=== PATIENT | female | born 1985 | race Caucasian/White ===

== ENCOUNTER → 2017-06-03 | Outpatient (CLI) | payer OTHER ==
--- NOTE | 2017-06-03 13:48 | RADIOLOGY REPORT (SQ) ---
EXAM DESCRIPTION: MRI LUMBAR SPINE WITHOUT COMPLETED DATE/TIME: 06/03/2017 12:43 pm REASON FOR STUDY: (M54.40) LOW BACK PAIN WITH SCIATICA M54.40 LUMBAGO WITH SCIATICA, UNSPECIFIED SI DE COMPARISON: None. TECHNIQUE: Sagittal and Axial imaging includes T1, T2, STIR and gradient echo sequences. Coronal T2/ HASTE imaging. LIMITATIONS: None. FINDINGS: VISUALIZED UPPER ABDOMEN: Limited evaluation. No acute or suspicious findings suggested. SEGMENTATION: No transitional anatomy. The lowest well-developed disc space is labeled L5-S1. ALIGNMENT: Anatomic. VERTEBRAE: Intact. BONE MARROW: Normal. No marrow replacement or reactive changes. DISC SIGNAL: Normal. No significant abnormal signal or loss of height. POSTERIOR ELEMENTS: Intact. HARDWARE: None in the spine. CORD AND CONUS: Normal in size and signal intensity. Conus at the appropriate level. SOFT TISSUES: No aortic aneurysm seen. No bulky retroperitoneal adenopathy or mass. No paraspinal mas s or fluid. L1-L2: No significant spinal stenosis or exit foraminal stenosis. L2-L3: No significant spinal stenosis or exit foraminal stenosis. L3-L4: Disc bulge. Mild narrowing of the spinal canal. L4-L5: No significant spinal stenosis or exit foraminal stenosis. L5-S1: Mild facet arthropathy. No significant spinal stenosis or exit foraminal stenosis. LOWER THORACIC: Incompletely imaged. No stenosis seen. SACRUM: Visualized upper sacrum intact. OTHER: No other significant findings. IMPRESSION: Mild degenerative changes. TECHNICAL DOCUMENTATION: JOB ID: [id number] [employer]- All Rights Reserved
== END ==
LOC: RAD 11:37
PROVIDERS: ATTEND Family Medicine
DX: M54.40 Lumbago with sciatica, unspecified side (principal)
CPT/HCPCS: 72148

== ENCOUNTER → 2017-10-25 | Outpatient (CLI) | payer MEDICAID, OTHER ==
--- NOTE | 2017-10-25 10:29 | RADIOLOGY REPORT (SQ) ---
EXAM DESCRIPTION: CT ABD/PELVIS NO ORAL OR IV COMPLETED DATE/TIME: 10/25/2017 9:50 am REASON FOR STUDY: LUQ ABDOMINAL PAIN R10.12 LEFT UPPER QUADRANT PAIN COMPARISON: None. TECHNIQUE: CT scan of the abdomen and pelvis performed without intravenous or oral contrast. Images reviewed with lung, soft tissue, and bone windows. Reconstructed coronal and sagittal MPR images revi ewed. All images stored on PACS. All CT scanners at this facility use dose modulation, iterative reconstruction, and/or weight based d osing when appropriate to reduce radiation dose to as low as reasonably achievable (ALARA). [facility]: Dose Right [facility]: CareDose [facility]: Dose Right [facility]: Teradose 4D [facility]: Smart tradeNOW RADIATION DOSE: CT Rad equipment meets quality standard of care and radiation dose reduction techniq ues were employed. CTDIvol: 2.4 mGy. DLP: 119 mGy-cm.mGy. LIMITATIONS: Lack of oral and intravenous contrast and paucity of intra-abdominal fat FINDINGS: LOWER CHEST: No significant findings. No nodules or infiltrates. NON-CONTRASTED LIVER, SPLEEN, ADRENALS: Evaluation limited by lack of IV contrast. No identified sign ificant masses. PANCREAS: No obvious masses or inflammatory changes. Evaluation limited. GALLBLADDER: No identified stones by CT criteria. No inflammatory changes to suggest cholecystitis. RIGHT KIDNEY AND URETER: No suspicious masses. Assessment limited by lack of IV contrast. No signif icant calcifications. No hydronephrosis or hydroureter. LEFT KIDNEY AND URETER: No suspicious masses. Assessment limited by lack of IV contrast. No signifi cant calcifications. No hydronephrosis or hydroureter. AORTA AND RETROPERITONEUM: No aneurysm. No retroperitoneal masses or adenopathy. BOWEL AND PERITONEAL CAVITY: No obvious masses or inflammatory changes. No free fluid. APPENDIX: Not identified. PELVIS, BLADDER, AND ABDOMINAL WALL:No abnormal masses. No free fluid. Bladder normal. BONES: No significant findings. OTHER: No other significant finding. IMPRESSION: Limited study as described above. No acute findings are seen in the abdomen or pelvis t o explain the patient's pain. COMMENT: Quality ID # [id number]: Final reports with documentation of one or more dose reduction techniques (e.g., Automated exposure control, adjustment of the mA and/or kV according to patient size, use of iterative reconstruction technique) TECHNICAL DOCUMENTATION: JOB ID: [id number] [employer]- All Rights Reserved Reading location - IP/workstation name: [email or web address]
== END ==
LOC: RAD 09:11
PROVIDERS: ATTEND Family Medicine
DX: R10.12 Left upper quadrant pain (principal)
CPT/HCPCS: 74176

== ENCOUNTER 2020-08-12 09:32 | Inpatient (IN) | payer MEDICAID ==
[2020-08-12] MEDS ORDERED: CITRIC ACID/SODIUM CITRATE ORAL SOLN 15 ML UDCUP ONE (10:08)
[2020-08-12] MEDS ORDERED: CLINDAMYCIN 900 MG/D5W RTU 900 MG/50 ML RTUPB IV ONE (10:08)
[2020-08-12] MEDS ORDERED: FAMOTIDINE INJ/PF 20 MG/2 ML SDV IV ONE (10:13)
[2020-08-12] MEDS ORDERED: RINGERS SOLUTION,LACTATED 1,000 ML IV PRN ×2 (10:13→12:09)
[2020-08-12 10:15] LABS: APPEARANCE,URINE SLIGHTLY-CLOUDY; BILIRUBIN,URINE NEGATIVE (NEGATIVE); COLOR,URINE YELLOW; GLUCOSE, URINE NEGATIVE (NEGATIVE); KETONES,URINE TRACE mg/dL (NEGATIVE); LEUKOCYTE ESTERASE,URINE LARGE (NEGATIVE); NITRITE,URINE NEGATIVE (NEGATIVE); PROTEIN,URINE 100 mg/dL (NEGATIVE); UROBILINOGEN,URINE NEGATIVE mg/dL (<2.0)
[2020-08-12] MEDS ORDERED: AZITHROMYCIN INJ 500 MG VIAL IV ONE ×2 (10:17→10:20)
[2020-08-12] MEDS ORDERED: OXYTOCIN 10 UNIT/ML VIAL ONE (10:19)
[2020-08-12] MEDS ORDERED: PHENYLEPHRINE HCL INJ/PF 10 MG/1 ML SDV ONE (10:19)
[2020-08-12] MEDS ORDERED: EPHEDRINE SULFATE INJ 50 MG/1 ML AMPULE ONE (10:19)
[2020-08-12] MEDS ORDERED: MIDAZOLAM 2 MG/2 ML INJ ONE (10:19)
[2020-08-12] MEDS ORDERED: FENTANYL CITRATE INJ/PF 100 MCG/2 ML AMPUL ONE (10:19)
[2020-08-12] MEDS ORDERED: KETOROLAC TROMETHAMINE INJ/PF 30 MG/1 ML SDV ONE (10:19)
[2020-08-12] MEDS ORDERED: OXYTOCIN/0.9 % SODIUM CHLORIDE 30 UNIT/500 ML RTUINJ ONE (10:19)
[2020-08-12] MEDS ORDERED: ACETAMINOPHEN 1,000 MG/100 ML RTUPB IV ONE (10:19)
[2020-08-12] MEDS ORDERED: ONDANSETRON HCL INJ/PF 4 MG/2 ML SDV ONE (10:19)
--- NOTE | 2020-08-12 10:28 | Admission Physical ---
Datetime Report Generated by CPN: 08/12/2020 10:28 CURRENT ADMISSION Hx Assessment: The History has been Reviewed and is Current Chief Complaint: Uterine Contractions; Maternal Discomfort Chief Complaint Other: Lost mucus plug last night. This morning painful contractions and bloody mucus when voiding. Good movement. No Loss of fluid Admit Impression : Term, Intrauterine ; Active Labor; Intact Membranes; Repeat Section Admit Plan: Admit to Unit; Initiate Section Protocol ALLERGIES Medication Allergies: ciprofloxacin HCl/Hives (08/12/2020); Penicillins/Swelling of Thr (08/12/2020) PHYSICAL EXAM General: Normal HEENT: Normal Neurologic: Normal Thyroid: Normal Heart: Normal Lungs: Normal Breast: Normal Back: Normal Abdomen: Normal Genitourinary Exam: Normal Extremities: Normal DTRs: Normal Pelvic Type: Adequate Vital Signs: Reviewed; Within Normal Limits VAGINAL EXAM Dilatation: 6 Effacement: 90 Station: -1 Contraction Comments: regularly q 3-4 minutes MEMBRANES Membranes: Intact FETUS A Monitoring: External US FHR- Baseline: 155 Variability: Moderate 6-25bpm Accelerations: 15X15 Decelerations: None FHR Category: Category I Presentation: Breech Admit Comment: at 38.2 wks EGA in active labor with breech presentation and undesired fertility -Admit to LDR -NPO and IVFs: LR at 150 cc/hr after 1 liter bolus -Abdomial prep -CEFM and toco -Allergy PCN anaphylaxis: Clindamycin 900mg IV prior to OR along with azithromycin 500mg IV prior to OR -Unwanted fertilty: G4 now. Desires BTL -Plan for PCS with BTL now INFORMED CONSENT Signature: with User ID: Tari : with User ID: Tari
[2020-08-12 10:44] LABS: ABSOLUTE BASOPHILS # (AUTO) 0.1 10^3/uL (0.0-0.2); ABSOLUTE EOSINOPHILS # (AUTO) 0.1 10^3/uL (0.0-0.6); ABSOLUTE MONOCYTES (AUTO) 0.8 10^3/uL (0.1-1.4); ABSOLUTE NEUT (AUTO) 10.2 10^3/uL (1.7-8.2); BASOPHILS % (AUTO) 0.8 % (0-2); EOSINOPHILS % (AUTO) 0.4 % (0-6); HEMATOCRIT 36.1 % (36.0-47.0); HEMOGLOBIN 12.9 g/dL (12.0-15.5); LYMPHOCYTES % (AUTO) 15.2 % (13-45); MEAN CORPUSCULAR HEMOGLOBIN 33.8 pg (27.0-33.4); MEAN CORPUSCULAR HGB CONC 35.8 g/dL (32.0-36.0); MEAN CORPUSCULAR VOLUME 95 fl (80-97); PLATELET COUNT 212 10^3/uL (150-450); RED BLOOD COUNT 3.82 10^6/uL (3.72-5.28); RED CELL DISTRIBUTION WIDTH 13.2 % (11.5-14.0); SEGMENTED NEUTROPHILS % (AUTO) 77.6 % (42-78); TOTAL CELLS COUNTED % (AUTO) 100 %; WHITE BLOOD COUNT 13.2 10^3/uL (4.0-10.5)
[2020-08-12 10:44] LABS: URINE AMPHETAMINES SCREEN NEGATIVE; URINE BARBITURATES SCREEN NEGATIVE; URINE BENZODIAZEPINES SCREEN NEGATIVE; URINE METHADONE SCREEN NEGATIVE; URINE PHENCYCLIDINE SCREEN NEGATIVE
[2020-08-12 10:51] LABS: URINE COCAINE SCREEN UNCONFIRMED POSITIVE; URINE MARIJUANA (THC) SCREEN UNCONFIRMED POSITIVE
[2020-08-12] MEDS ORDERED: ACETAMINOPHEN 325 MG TABLET PO PRN (12:09)
[2020-08-12] MEDS ORDERED: MEASLES,MUMPS&RUBELLA VACC/PF 0.5 ML VIAL SUBCUT PRN (12:09)
[2020-08-12] MEDS ORDERED: OXYTOCIN/0.9 % SODIUM CHLORIDE 30 UNIT/500 ML RTUINJ IV PRN (12:09)
[2020-08-12] MEDS ORDERED: OXYCODONE-ACETAMINOPHEN 5-325 MG TABLET PO PRN (12:09)
[2020-08-12] MEDS ORDERED: PROMETHAZINE HCL INJ 25 MG/1 ML VIAL IV PRN (12:09)
[2020-08-12] MEDS ORDERED: DIPH/PERTUSS(ACELL)/TETANUS VAC/PF 0.5 ML SYR (>=10YO) IM PRN (12:09)
--- NOTE | 2020-08-12 13:57 | Birth Certificate Data ---
Cert Data Datetime Report Generated by CPN: 08/12/2020 13:56 CERTIFICATE DATA Delivery Provider: Hina Mullen MD (08/12/2020 09:29:Keerthi Spear RN) 47a. Care: No (08/12/2020 09:29:Elizabeth Hernandez RN) 47b. Date of First Visit: 04/05/2020 00:00 (08/12/2020 09:29:Elizabeth Hernandez RN) 47c. Date of Last Visit: 08/05/2020 00:00 (08/12/2020 09:29:Elizabeth Hernandez RN) 47d. Number of Visits: 7 (08/12/2020 09:29:Elizabeth Hernandez RN) 48a. Number of Prev Live Births: 3 (08/12/2020 09:29:Elizabeth Hernandez RN) 48b. Now Livin (08/12/2020 09:29:Elizabeth Hernandez RN) 48c. Live Births Now : 0 (08/12/2020 09:29:QS system process) 48d. Date of Last Live : 09/13/2015 00:00 (08/12/2020 09:29:Elizabeth Hernandez RN) 48e. Losses: 0 (08/12/2020 09:29:Elizabeth Hernandez RN) RISK FACTORS IN THIS 49a. Diabetes: No (08/12/2020 09:29:Elizabeth Hernandez RN) 49b. Hypertension: No (08/12/2020 09:29:Elizabeth Hernandez RN) 49c. Previous Births: 0 (08/12/2020 09:29:Elizabeth Hernandez RN) 49d. Stillborns: No (08/12/2020 09:29:Elizabeth Hernandez RN) 49d. IUGR: No (08/12/2020 09:29:Elizabeth Hernandez RN) 49e. Infertility Treatment: No (08/12/2020 09:29:Elizabeth Hernandez RN) 49f. Previous Cesareans: 0 (08/12/2020 09:29:Elizabeth Hernandez RN) Mother's Height 50b. Height Inches: 65 (08/12/2020 09:43:QS system process) Mother's Weight 51a. Pre- Weight (lbs): 140 (08/12/2020 09:29:Elizabeth Hernandez RN) 51b. Weight at Delivery (lbs): 167 (08/12/2020 10:14:QS system process) 52. Dt Last Normal Menses Began: 11/16/2019 00:00 (08/12/2020 09:29:Elizabeth Hernandez RN) Infections Present/Treated 53a. Gonorrhea: No (08/12/2020 09:29:Elizabeth Hernandez RN) Results this Hospital Visit : Negative (08/12/2020 09:29:Elizabeth Hernandez RN) 53b. Syphilis: No (08/12/2020 09:29:Elizabeth Hernandez RN) 53c. Chlamydia: No (08/12/2020 09:29:Elizabeth Hernandez RN) Results this Hospital Visit: Negative (08/12/2020 09:29:Elizabeth Hernandez RN) 53d. Hepatitis B: No (08/12/2020 09:29:Elizabeth Hernandez RN) Results this Hospital Visit: Negative (08/12/2020 09:29:Elizabeth Hernandez RN) 53e. Hepatitis C: Negative (08/12/2020 09:29:Elizabeth Hernandez RN) 53h. Mother Tested for HBsAG: Yes (08/12/2020 09:29:Elizabeth Hernandez RN) 53i. Date Tested: 04/17/2020 00:00 (08/12/2020 09:29:Elizabeth Hernandez RN) 53j. Test Result: Negative (08/12/2020 09:29:Elizabeth Hernandez RN) Obstetric Procedures 54a, b, c. Obstetric Procedures: Ultrasound; NST (08/12/2020 09:29:Elizabeth Hernandez RN) Cigarette Smoking Cigarette Smoking: Current Everyday Smoker. [id number] (08/12/2020 09:29:Elizabeth Hernandez RN) 55a. 3 Months Before Preg - Ci (08/12/2020 09:29:Elizabeth Hernandez RN) 55a. Packs: 1 (08/12/2020 09:29:Elizabeth Hernandez RN) 55b. 1st Trimester of Preg- Ci (08/12/2020 09:29:Elizabeth Hernandez RN) 55b. Packs: 0 (08/12/2020 09:29:Elizabeth Hernandez RN) 55c. 2nd Trimester of Preg- Ci (08/12/2020 09:29:Elizabeth Hernandez RN) 55c. Packs: 0 (08/12/2020 09:29:Elizabeth Hernandez RN) 55d. 3rd Trimester of Preg- Ci (08/12/2020 09:29:Elizabeth Hernandez RN) 55d. Packs: 0 (08/12/2020 09:29:Elizabeth Hernandez RN) Onset of Labor 56a. PROM >12 Hrs: 0.02 (08/12/2020 09:29:QS system process) 56b. Precipitous Labor <3 Hrs: 3 (08/12/2020 09:29:QS system process) 56c. Prolonged Labor > 20 Hrs: 3 (08/12/2020 09:29:QS system process) 57a. Induction of Labor: N/A (08/12/2020 09:29:Keerthi Spear RN) 57c. Non-Vertex Presentation A: N/A (08/12/2020 09:29:Keerthi Spear RN) 57d. Steroids - Lung Mat: None (08/12/2020 09:29:Keerthi Spear RN) 57d. Steroids - Lung Mat: Not Applicable (08/12/2020 09:29:Keerthi Spear RN) 57f. Mat [place] or Temp >100.4: 98.0 (08/12/2020 09:29:Elizabeth Hernandez RN) 57g. Moderate/Heavy Meconium: Light Meconium (08/12/2020 09:29:Elizabeth Hernandez RN) 57h. Intolerance of Labor: Breech Presentation (08/12/2020 09:29:Keerthi Spear RN) 57i. Epidural/Spinal Anesthesia: None (08/12/2020 09:29:Keerthi Spear RN) Method of Delivery 58a. Forceps - Unsuccessful A: N/A (08/12/2020 09:29:Keerthi Spear RN) 58b. Vacuum - Unsuccessful A: N/A (08/12/2020 09:29:Keerthi Spear RN) 58c. Presentation at 58c. Presentation at - A : N/A (08/12/2020 09:29:Keerthi Spear RN) 58c. Presentation at - A : Brandyn (08/12/2020 09:29:Elizabeth Hernandez RN) 58c. Presentation at - A : Breech (Annotations: Data stored by [employer] on behalf of user) (08/12/2020 09:29:Keerthi Spear RN) Final Route and Method of Del 58d. Baby A Route/Delivery: (08/12/2020 09:29:Glenna Palomares RN) 58e. Trial of Labor Attempted: No (08/12/2020 09:29:Keerthi Spear RN) 58e. Trial of Labor Attempted A: N/A (08/12/2020 09:29:Keerthi Spear RN) 58e. Trial of Labor Attempted B: N/A (08/12/2020 09:29:Keerthi Spear RN) Maternal Morbidity 59b. 3rd or 4th Degree Lacs: None (08/12/2020 09:29:Keerthi Spear RN) 59b. 3rd or 4th Degree Lacs: N/A (08/12/2020 09:29:Keerthi Spear RN) Birthweight Baby A: 2565 (08/12/2020 09:29:Glenna Palomares RN) 60a. Pounds : 5 (08/12/2020 09:29:QS system process) 60b. Ounces: 10 (08/12/2020 09:29:QS system process) 61. GA at Delivery Baby A: 38.2 (08/12/2020 09:29:Keerthi Spear RN) : Early Term- 37- 38.6 Weeks (08/12/2020 09:29:QS system process) 62a. 5 Minute Baby A: 9 (08/12/2020 09:29:QS system process)
--- NOTE | 2020-08-12 13:57 | Delivery Summary ---
Del Sum A-C Datetime Report Generated by CPN: 08/12/2020 13:56 DELIVERY PERSONNEL DELIVERY PERSONNEL: [id number] Delivery Doctor:: Hina Mullen MD VARIETY LATHE OPERATOR:: Robin Valencia VARIETY LATHE OPERATOR Fashion Photographer:: lEizabeth Hernandez RN Neonatal Nurse Practitioner:: HYUN Henry Nursery Nurse:: Elizabeth Hernandez RN Environmental Health And Safety Intern/QM CONSULTANT: Chica Rojo CST Environmental Health And Safety Intern/QM CONSULTANT: Honey Puri, ST MATERNAL INFORMATION Delivery Anesthesia: Spinal Medications After Delivery: Pitocin 30 Units in 500ml NS/D5W; Pitocin Drip 20 Units/1000ml NSS Delivery QBL: 430 Maternal Complications: None LABOR SUMMARY EDC: 08/22/2020 00:00 No. Babies in Womb: 1 Attempted: No Labor Anesthesia: None LABOR INFORMATION Reason for Induction: Not Applicable Onset of Labor: 08/12/2020 08:00 Oxytocin: N/A Group B Beta Strep: Negative Antibiotics # of Doses: n/a Name of Antibiotic Given: n/a Steroids Given: None Reason Steroids Not Administered: Not Applicable MEMBRANES Membranes Rupture Method: Artificial Rupture of Membranes: 08/12/2020 11:13 Length of Rupture (hr): 0.02 Amniotic Fluid Color: Light Meconium Amniotic Fluid Amount: Small Amniotic Fluid Odor: Normal STAGES OF LABOR Stage 3 hr: 0 Stage 3 min: 1 Total Time in Labor hr: 3 Total Time in Labor min: 15 VAGINAL DELIVERY Episiotomy: None Laceration #1: None Laceration Extension #1: N/A Laceration Repair: Not Applicable Sponge Count Correct: N/A Sharps Count Correct: N/A CSECTION DELIVERY Primary Indication: Breech Presentation CSection Urgency: Non-Scheduled CSection Incidence: Primary Labor: Labor Elective: Nonelective CSection Incision: Lower Uterine Transverse Other Sterilization Procedure: Modified Brown BABY A INFORMATION Delivery Date/Time: 08/12/2020 11:14 Method of Delivery: Nurse Controlled Delivery: No Born in Route : No : N/A Forceps: N/A Vacuum Extraction: N/A Shoulder Dystocia : No PRESENTATION/POSITION BABY A Presentation: Breech (Annotations: Data stored by [facility] on behalf of user) Cephalic Presentation: N/A Breech Presentation: Brandyn PLACENTA INFORMATION BABY A Placenta Delivery Time : 08/12/2020 11:15 Placenta Method of Delivery: Manual Removal Placenta Status: Delivered SCORES BABY A Heart Rate 1 min: >100 bpm Resp Effort 1 min: Good Cry Reflex Irritability 1 min: Cough or Sneeze or Pulls Away Muscle Tone 1 min: Some Flexion of Extremities Color 1 min: Blue/Pale SCORE 1 MIN: 7 Heart Rate 5 min: >100 bpm Resp Effort 5 min: Good Cry Reflex Irritability 5 min: Cough or Sneeze or Pulls Away Muscle Tone 5 min: Active Motion Color 5 min: Body Deepstep, Extremities Blue SCORE 5 MIN: 9 INFORMATION BABY A Gestational Age at Delivery: 38.2 Gestational Status: Early Term- 37- 38.6 Weeks Infant Outcome : Liveborn Condition : Stable Infant Sex: Female IDENTIFICATION BABY A Verification Date/Time: 08/12/2020 11:22 ID Band Number: [id number] Mother's Name Verified: Yes RN Verifying Infant: Maliha Hernandez RN Additional Verifying Personnel: Cornelio Palomares RN WEIGHT/LENGTH BABY A Birthweight (gm): 2565 Weight (lb): 5 Infant Weight (oz): 10 Length (in): 19.50 Length (cm): 49.53 CORD INFORMATION BABY A No. Cord Vessels: 3 Nuchal Cord : N/A Cord Blood Taken: No-Annotate Suction: Mouth; Nose ASSESSMENT BABY A Skin to Skin: No BABY B INFORMATION : N/A
[2020-08-12] MEDS ORDERED: DIPHENHYDRAMINE HCL 50 MG/ML VIAL ONE (14:19)
[2020-08-12] MEDS ORDERED: DIPHENHYDRAMINE HCL 50 MG/ML VIAL IV ONE (14:23)
--- NOTE | 2020-08-12 14:42 | Operative Report ---
Operative Report DATE OF SURGERY: 08/12/20 PREOPERATIVE DIAGNOSIS: Active labor. Breech. Unwanted fertitlity. Maternal substance abuse in : third trimester. Intrauterine at 38.2 wks POSTOPERATIVE DIAGNOSIS: Same as above. Mecondium stainted amniotic fluid OPERATION: Primary cesareant section. Bilateral tubal ligation SURGEON: JAVIER SULLIVAN ANESTHESIA: Spinal TISSUE REMOVED OR ALTERED: Placenta and bilateral fallopian tube segments COMPLICATIONS: None ESTIMATED BLOOD LOSS: 700cc INTRAOPERATIVE FINDINGS: Normal appearing uterus, bilateral fallopian tubes and ovaries. Meconium stained fluid . Viable female infant. PROCEDURE: IV fluids: per anesthesia record Urinary output: 300 cc clear yellow urine Position: To recovery room in stable condition Description of procedure: The patient was taken to the operating room and spinal anesthesia was administered and found to be adequate. She was then placed on the OR table in the supine position with a slight leftward tilt. Patient was prepped and draped in usual sterile fashion. Azithromycin 500mg and Clindamycin 900mg were given IV prior to the procedure for infection prophylaxis. Timeout was taken. A Pfannenstiel skin incision was then made approximately 3 cm above the pubic symphysis and carried down to level the rectus fascia. The rectus fascia was then nicked in the midline with a scalpel and the fascial incision was extended laterally with use of curved Mart scissors. The rectus fascia was then grasped with 2 Kocker clamps elevated and the underlying rectus muscle was dissected off both bluntly and sharply. Any bleeding controlled with cautery. The rectus muscles were then split in the midline and the peritoneum was entered. The peritoneal incision was then extended by manually stretching the peritoneum. The bladder blade was positioned. Bladder flap created and bladder blade replaced. The bladder was noted to be out of harm's way. A scalpel was then used in the lower uterine for the hysterotomy, slowly until amniotomy was obtained a large amount of meconium fluid was noted. The uterine incision was then manually stretched. The infant was noted to be in breech position . The buttocks were delivered with minmal difficulty. Then the legs each delivered followed by the torso to level of the scapula. Each arm was delivered and then the head delivered easily. The cord was cut clamped and the was handed off to the nurse awaiting. Infant was crying prior to hand off. The placenta was manually delivered. Using a lap gauze the uterus was cleared of all clots and debris. The uterus was then exteriorized and a bladder blade was repositioned. The uterine incision was then closed with 0 Chromic suture in a running locked fashion. A second layer of the same suture was used in a running locked imbricated fashion. The uterine incision was inspected and noted to be hemostatic. Retractor was removed. The posterior aspect of the uterus was then inspected and anatomy was seen as above. The right fallopian tube was identified and traced to the fimbriated end. A vascular free area was identified in the mesosalpinx approximately 2 cm from the uterine cornu. Using the bovie a window was created. [place] clamps elevated holding tube segement and 2-0 plain gut was used to tie off tube on either side of otilio clamps. Segment of tube between ties was cut with metzenbaum scissors and will be sent to pathology. Blanching noted and hemostasis. Similar procedure carried out on the left fallopian tube after it was traced to its fimbriated end. GOod hemostasis on the left as well with good blanching at the ties. The uterus was returned to its normal anatomic position within the abdominal cavity. Warm saline irrigation was used to clear all clots and debris from the abdomen. The uterine incision was inspected once more and noted to remain hemostatic. Tubes inspected and ties remain in place with good hemostasis. The bladder blade was removed and the peritoneum was closed with 2-0 chromic in a running fashion. The rectus muscles were then reapproximated and the rectus fascia was closed with a #0 looped PDS in a running fashion. The subcutaneous tissue was then inspected and any bleeding was controlled with Bovie electrocautery. The subcutaneous tissue was then closed with 2-0 Plain Gut suture in a running fashion. The skin was then closed with 3-0 Monocryl in a running subcuticular fashion. The skin incision was then clean dried and Dermabond was applied over the skin incision. All instrument sponge and needle counts were correct x3 for the procedure the patient tolerated the procedure well. She will proceed to recovery room in stable condition
[2020-08-12] MEDS: CLINDAMYCIN 900 MG/D5W RTU 900 MG/50 ML RTUPB IV SCH (15:57)
[2020-08-12] MEDS: KETOROLAC TROMETHAMINE INJ/PF 30 MG/1 ML SDV IV SCH ×2 (15:57→21:10)
[2020-08-12] MEDS: HYDROMORPHONE HCL INJ/PF 2 MG/ML AMPULE IV PRN ×2 (17:08→22:38)
[2020-08-12] MEDS: DOCUSATE SODIUM 100 MG CAPSULE PO SCH (17:44)
[2020-08-12] MEDS: PANTOPRAZOLE SODIUM 40 MG TABLET.DR PO SCH (21:10)
[2020-08-12] MEDS: SIMETHICONE 80 MG TAB.CHEW PO PRN (22:39)
[2020-08-13] MEDS: MAG HYDROX/AL HYDROX/SIMETH SUSP 30 ML UDCUP PO PRN ×2 (00:51→05:31)
[2020-08-13] MEDS: OXYCODONE-ACETAMINOPHEN 5-325 MG TABLET PO PRN ×2 (03:20→10:54)
[2020-08-13] MEDS: KETOROLAC TROMETHAMINE INJ/PF 30 MG/1 ML SDV IV SCH (05:32)
[2020-08-13 06:37] LABS: HEMATOCRIT 33.5 % (36.0-47.0); HEMOGLOBIN 11.5 g/dL (12.0-15.5); MEAN CORPUSCULAR HEMOGLOBIN 32.6 pg (27.0-33.4); MEAN CORPUSCULAR HGB CONC 34.5 g/dL (32.0-36.0); MEAN CORPUSCULAR VOLUME 95 fl (80-97); PLATELET COUNT 174 10^3/uL (150-450); RED BLOOD COUNT 3.54 10^6/uL (3.72-5.28); RED CELL DISTRIBUTION WIDTH 13.5 % (11.5-14.0); WHITE BLOOD COUNT 13.2 10^3/uL (4.0-10.5)
--- NOTE | 2020-08-13 09:20 | PDOC PROGRESS REPORT ---
Subjective-OB Progress Note for:: 08/13/20 Subjective: sitting up , holding baby, doing well, walking, voiding, pain under control with meds, bottle feeding, wearing a bra Physical Exam (OB) Vital Signs: Temp Pulse Resp BP Pulse Ox 97.4 F 58 L 16 123/78 97 08/13/20 07:23 08/13/20 07:23 08/13/20 07:23 08/13/20 07:23 08/13/20 07:23 Intake & Output 08/12/20 08/13/20 08/14/20 06:59 06:59 06:59 Intake Total 200 Output Total 2550 Balance -2350 Weight 76.2 kg - PIH/Pre-Eclampsia Headache: Absent Epigastric Pain: No Visual Changes: No - Dressing Removed: No Incision: Well Approximated Closure Type: Surgical Glue - Maternal Morbidity 59. Maternal Morbidity (serious complications experinced by the mother associated with labor and delivery: None of the above - Lochia Lochia Amount: Scant < 10 ml Lochia Color: Rubra/Red - Abdomen Description: Tender, Soft Hernia Present: No Fundal Description: Firm, Midline Fundal Height: u/u - u/2 Objective-Diagnostic Laboratory: 08/13/20 06:30 08/12/20 08/12/20 08/12/20 09:43 09:43 10:35 WBC 13.2 H RBC 3.82 Hgb 12.9 Hct 36.1 MCV 95 MCH 33.8 H MCHC 35.8 RDW 13.2 Plt Count 212 Seg Neutrophils % 77.6 Urine Color YELLOW Cancelled Urine Appearance SLIGHTLY-CLOUDY Cancelled Urine pH 6.0 Cancelled Ur Specific Arnold 1.010 Cancelled Urine Protein 100 H Cancelled Urine Glucose (UA) NEGATIVE Cancelled Urine Ketones TRACE H Cancelled Urine Blood LARGE H Cancelled Urine Nitrite NEGATIVE Cancelled Ur Leukocyte Esterase LARGE H Cancelled Urine WBC (Auto) 24 Cancelled Urine RBC (Auto) 25 Cancelled Blood Type Antibody Screen 08/12/20 08/13/20 10:35 06:30 WBC 13.2 H RBC 3.54 L Hgb 11.5 L Hct 33.5 L MCV 95 MCH 32.6 MCHC 34.5 RDW 13.5 Plt Count 174 Seg Neutrophils % Urine Color Urine Appearance Urine pH Ur Specific Arnold Urine Protein Urine Glucose (UA) Urine Ketones Urine Blood Urine Nitrite Ur Leukocyte Esterase Urine WBC (Auto) Urine RBC (Auto) Blood Type O POSITIVE Antibody Screen NEGATIVE Assessment and Plan(PN) - Assessment and Plan (1) AMA (advanced maternal age) multigravida 35+ Qualifiers: Trimester: first trimester Qualified Code(s): O09.521 - Supervision of elderly multigravida, first trimester Is this a current diagnosis for this admission?: Yes (2) Drug abuse Is this a current diagnosis for this admission?: Yes (3) Brandyn breech presentation Qualifiers: Fetus number: single or unspecified fetus Qualified Code(s): O32.1XX0 - Maternal care for breech presentation, not applicable or unspecified Is this a current diagnosis for this admission?: Yes (4) Status post primary low transverse section Is this a current diagnosis for this admission?: Yes (5) Tubal ligation status Is this a current diagnosis for this admission?: Yes (6) Acute blood loss anemia Is this a current diagnosis for this admission?: No - Time Spent with Patient Time with patient: Less than 15 minutes Medications reviewed and adjusted accordingly: Yes - Disposition Anticipated Discharge Disposition: Home, Self Care Anticipated Discharge Timeframe: within 48 hours
[2020-08-13] MEDS: DOCUSATE SODIUM 100 MG CAPSULE PO SCH ×2 (10:51→18:01)
[2020-08-13] MEDS: IBUPROFEN 800 MG TABLET PO SCH ×2 (13:46→21:07)
[2020-08-13] MEDS: SIMETHICONE 80 MG TAB.CHEW PO PRN ×2 (13:48→20:15)
[2020-08-13] MEDS: PRENATAL VITAMIN W DHA CAPSULE PO SCH (19:30)
[2020-08-13] MEDS: PANTOPRAZOLE SODIUM 40 MG TABLET.DR PO SCH (21:08)
[2020-08-14] MEDS: SIMETHICONE 80 MG TAB.CHEW PO PRN (04:10)
[2020-08-14] MEDS: IBUPROFEN 800 MG TABLET PO SCH (06:04)
[2020-08-14] MEDS: PRENATAL VITAMIN W DHA CAPSULE PO SCH (10:34)
[2020-08-14] MEDS: DOCUSATE SODIUM 100 MG CAPSULE PO SCH (10:34)
--- NOTE | 2020-08-14 10:49 | PDOC PROGRESS REPORT ---
Subjective-OB Progress Note for:: 08/14/20 Subjective: Doing well, no c/o, feeling better, talking about her + cocaine and she had a weak moment and so sorry, Hsb has taken all contacts out of her phone, has good family support, desires counseling and will f/u with finding a counselor, bottle feeding, ambulating, voiding, pain under control, baby going home with her Physical Exam (OB) Vital Signs: Temp Pulse Resp BP Pulse Ox 97.5 F 71 18 130/80 H 100 08/14/20 10:00 08/14/20 08:10 08/14/20 08:10 08/14/20 08:10 08/14/20 08:10 Intake & Output 08/13/20 08/14/20 08/15/20 06:59 06:59 06:59 Intake Total 200 1200 Output Total 2550 Balance -2350 1200 Weight 76.2 kg - PIH/Pre-Eclampsia DTR's: 2 + Clonus: Negative Headache: Absent Epigastric Pain: No Visual Changes: No - Dressing Removed: No Incision: Open, Well Approximated Closure Type: Surgical Glue - Maternal Morbidity 59. Maternal Morbidity (serious complications experinced by the mother associated with labor and delivery: None of the above - Lochia Lochia Amount: Scant < 10 ml Lochia Color: Rubra/Red - Abdomen Description: Soft Hernia Present: No Fundal Description: Firm, Midline Fundal Height: u/3 - u/4 Objective-Diagnostic Laboratory: 08/13/20 06:30 Assessment and Plan(PN) - Assessment and Plan (1) AMA (advanced maternal age) multigravida 35+ Qualifiers: Trimester: first trimester Qualified Code(s): O09.521 - Supervision of elderly multigravida, first trimester Is this a current diagnosis for this admission?: Yes (2) Drug abuse Is this a current diagnosis for this admission?: Yes (3) Brandyn breech presentation Qualifiers: Fetus number: single or unspecified fetus Qualified Code(s): O32.1XX0 - Maternal care for breech presentation, not applicable or unspecified Is this a current diagnosis for this admission?: Yes (4) Status post primary low transverse section Is this a current diagnosis for this admission?: Yes (5) Tubal ligation status Is this a current diagnosis for this admission?: Yes (6) Acute blood loss anemia Is this a current diagnosis for this admission?: No - Time Spent with Patient Time with patient: Less than 15 minutes Medications reviewed and adjusted accordingly: Yes - Disposition Anticipated Discharge Disposition: Home, Self Care Anticipated Discharge Timeframe: within 24 hours
--- NOTE | 2020-08-14 10:53 | PDOC DISCHARGE SUMMARY ---
Impression - Admit/DC Date/PCP Admission Date/Primary Care Provider: 08/12/20 10:09 JAVIER SULLIVAN MD Discharge Date: 08/14/20 - Discharge Diagnosis (1) AMA (advanced maternal age) multigravida 35+ Is this a current diagnosis for this admission?: Yes (2) Drug abuse Is this a current diagnosis for this admission?: Yes (3) Brandyn breech presentation Is this a current diagnosis for this admission?: Yes (4) Status post primary low transverse section Is this a current diagnosis for this admission?: Yes (5) Tubal ligation status Is this a current diagnosis for this admission?: Yes (6) Acute blood loss anemia Is this a current diagnosis for this admission?: No - Additional Information Discharge Diet: As Tolerated, Regular Discharge Activity: Activity As Tolerated, Balance Activity w/Rest, No Lifting Over 10 Pounds, No Lifting/Push/Pulling, Pelvic Rest Referrals: JAVIER SULLIVAN MD [Primary Care Provider] - (Follow up in 1 week for incision check. Call the office and make an appoinment. ) Prescriptions: Oxycodone HCl/Acetaminophen [Percocet 5-325 mg Tablet] 1 tab PO Q4HP PRN #30 tablet PRN Reason: Ibuprofen [Motrin 800 mg Tablet] 800 mg PO Q8 #30 tablet Home Medications: Vit/Iron Fum/Folic AC [ Tablet] 1 each PO DAILY 09/13/15 Ferrous Sulfate [Feosol 325 mg Tablet] 325 mg PO BID #60 tablet 09/15/15 Omeprazole [Prilosec] 20 mg PO DAILY #60 capsule. 09/15/15 Loratadine [Claritin] 10 mg PO DAILY 08/12/20 Ibuprofen [Motrin 800 mg Tablet] 800 mg PO Q8 #30 tablet 08/13/20 Oxycodone HCl/Acetaminophen [Percocet 5-325 mg Tablet] 1 tab PO Q4HP PRN #30 tablet 08/13/20 HPI Gestational Age: 38 Reason(s) for Admission: Onset of Labor, Ceasarean Section-Primary Admission Note: breech Procedures: NST, Ultrasound Intrapartum Procedure(s): : Low Cervical, Transverse, Tubal Ligation Hospital Course Hospital Course: routine Post op 59. Maternal Morbidity (serious complications experinced by the mother associated with labor and delivery: None of the above Results Laboratory Results: WBC 13.2 10^3/uL (4.0-10.5) H 08/13/20 06:30 RBC 3.54 10^6/uL (3.72-5.28) L 08/13/20 06:30 Hgb 11.5 g/dL (12.0-15.5) L 08/13/20 06:30 Hct 33.5 % (36.0-47.0) L 08/13/20 06:30 MCV 95 fl (80-97) 08/13/20 06:30 MCH 32.6 pg (27.0-33.4) 08/13/20 06:30 MCHC 34.5 g/dL (32.0-36.0) 08/13/20 06:30 RDW 13.5 % (11.5-14.0) 08/13/20 06:30 Plt Count 174 10^3/uL (150-450) 08/13/20 06:30 Lymph % (Auto) 15.2 % (13-45) 08/12/20 10:35 Ray % (Auto) 6.0 % (3-13) 08/12/20 10:35 Eos % (Auto) 0.4 % (0-6) 08/12/20 10:35 Baso % (Auto) 0.8 % (0-2) 08/12/20 10:35 Absolute Neuts (auto) 10.2 10^3/uL (1.7-8.2) H 08/12/20 10:35 Absolute Lymphs (auto) 2.0 10^3/uL (0.5-4.7) 08/12/20 10:35 Absolute Monos (auto) 0.8 10^3/uL (0.1-1.4) 08/12/20 10:35 Absolute Eos (auto) 0.1 10^3/uL (0.0-0.6) 08/12/20 10:35 Absolute Basos (auto) 0.1 10^3/uL (0.0-0.2) 08/12/20 10:35 Seg Neutrophils % 77.6 % (42-78) 08/12/20 10:35 Urine Color Cancelled 08/12/20 09:43 Urine Color YELLOW 08/12/20 09:43 Urine Appearance Cancelled 08/12/20 09:43 Urine Appearance SLIGHTLY-CLOUDY 08/12/20 09:43 Urine pH 6.0 (5.0-9.0) 08/12/20 09:43 Urine pH Cancelled 08/12/20 09:43 Ur Specific [place] 1.010 08/12/20 09:43 Ur Specific [place] Cancelled 08/12/20 09:43 Urine Protein 100 mg/dL (NEGATIVE) H 08/12/20 09:43 Urine Protein Cancelled 08/12/20 09:43 Urine Glucose (UA) Cancelled 08/12/20 09:43 Urine Glucose (UA) NEGATIVE mg/dL (NEGATIVE) 08/12/20 09:43 Urine Ketones Cancelled 08/12/20 09:43 Urine Ketones TRACE mg/dL (NEGATIVE) H 08/12/20 09:43 Urine Blood Cancelled 08/12/20 09:43 Urine Blood LARGE (NEGATIVE) H 08/12/20 09:43 Urine Nitrite Cancelled 08/12/20 09:43 Urine Nitrite NEGATIVE (NEGATIVE) 08/12/20 09:43 Urine Bilirubin Cancelled 08/12/20 09:43 Urine Bilirubin NEGATIVE (NEGATIVE) 08/12/20 09:43 Urine Urobilinogen Cancelled 08/12/20 09:43 Urine Urobilinogen NEGATIVE mg/dL (<2.0) 08/12/20 09:43 Ur Leukocyte Esterase Cancelled 08/12/20 09:43 Ur Leukocyte Esterase LARGE (NEGATIVE) H 08/12/20 09:43 Urine WBC (Auto) 24 /HPF 08/12/20 09:43 Urine WBC (Auto) Cancelled 08/12/20 09:43 Urine RBC (Auto) 25 /HPF 08/12/20 09:43 Urine RBC (Auto) Cancelled 08/12/20 09:43 U Hyaline Cast (Auto) Cancelled 08/12/20 09:43 Urine Bacteria (Auto) 1+ /HPF 08/12/20 09:43 Urine Bacteria (Auto) Cancelled 08/12/20 09:43 Urine Red Cell Clumps Cancelled 08/12/20 09:43 Urine WBC Clumps Cancelled 08/12/20 09:43 Squamous Epi Cells Auto 9 /HPF 08/12/20 09:43 Squamous Epi Cells Auto Cancelled 08/12/20 09:43 U Non-Squamous Epis Auto Cancelled 08/12/20 09:43 Calcium Carbonate Cryst Cancelled 08/12/20 09:43 Calcium Phosphate Cryst Cancelled 08/12/20 09:43 Calcium Oxalate Cr Auto Cancelled 08/12/20 09:43 Leucine Crystals Cancelled 08/12/20 09:43 Cystine Crystals Cancelled 08/12/20 09:43 Uric Acid Cryst (Auto) Cancelled 08/12/20 09:43 Triple Phos Cryst (Auto) Cancelled 08/12/20 09:43 Tyrosine Crystals Cancelled 08/12/20 09:43 Amorphous Sediment Auto Cancelled 08/12/20 09:43 Cellular Casts Cancelled 08/12/20 09:43 Epithelial Casts (Auto) Cancelled 08/12/20 09:43 Fatty Casts Cancelled 08/12/20 09:43 Granular Casts (Auto) Cancelled 08/12/20 09:43 Waxy Casts (Auto) Cancelled 08/12/20 09:43 Broad Casts Cancelled 08/12/20 09:43 RBC Casts (Auto) Cancelled 08/12/20 09:43 WBC Casts (Auto) Cancelled 08/12/20 09:43 Urine Mucus (Auto) Cancelled 08/12/20 09:43 U Trichomonas (Auto) Cancelled 08/12/20 09:43 Ur Yeast w Hyphae Cancelled 08/12/20 09:43 Urine Yeast (Budding) Cancelled 08/12/20 09:43 Urine Ascorbic Acid Cancelled 08/12/20 09:43 Urine Ascorbic Acid NEGATIVE (NEGATIVE) 08/12/20 09:43 Membranes Rupture POSITIVE (NEGATIVE) H 08/12/20 09:47 Urine Opiates Screen NEGATIVE 08/12/20 09:43 Urine Methadone Screen NEGATIVE 08/12/20 09:43 Ur Barbiturates Screen NEGATIVE 08/12/20 09:43 Ur Phencyclidine Scrn NEGATIVE 08/12/20 09:43 Ur Amphetamines Screen NEGATIVE 08/12/20 09:43 U Benzodiazepines Scrn NEGATIVE 08/12/20 09:43 Urine Cocaine Screen UNCONFIRMED POSITIVE 08/12/20 09:43 U Marijuana (THC) Screen UNCONFIRMED POSITIVE 08/12/20 09:43 Blood Type O POSITIVE 08/12/20 10:35 Antibody Screen NEGATIVE 08/12/20 10:35 Plan Health Concerns: PPD, smoke, drug use Plan of Treatment: dc home, f/u Saturday at [facility], no smoking,, no drugs, get appt with counselor Goals: no complications Time Spent: Less than 30 Minutes
[2020-08-14 11:12] VITALS: BP 134/89
[2020-08-14] MEDS: OXYCODONE-ACETAMINOPHEN 5-325 MG TABLET PO PRN (11:44)
== END 2020-08-14 12:30 | disposition home or self-care (01) | DRG 784 ==
LOC: LC 09:32 → LR 10:09 → 2S 14:45
PROVIDERS: ADMIT Obstetrics & Gynecology; ATTEND Obstetrics & Gynecology
PROC: 10D00Z1 Extraction of Products of Conception, Low, Open Approach (ICD-10-PCS; principal; 2020-08-12)
PROC: 0U570ZZ Destruction of Bilateral Fallopian Tubes, Open Approach (ICD-10-PCS; 2020-08-12)
DX: O32.1XX0 Maternal care for breech presentation, not applicable or unspecified (principal); O99.324 Drug use complicating childbirth; D62 Acute posthemorrhagic anemia; O77.0 Labor and delivery complicated by meconium in amniotic fluid; F14.10 Cocaine abuse, uncomplicated; F12.20 Cannabis dependence, uncomplicated; O99.283 Endocrine, nutritional and metabolic diseases complicating pregnancy, third trimester; E03.9 Hypothyroidism, unspecified; O99.013 Anemia complicating pregnancy, third trimester; Z3A.38 38 weeks gestation of pregnancy; Z37.0 Single live birth; Z30.2 Encounter for sterilization
CPT/HCPCS: 1961; 36415; 80307; 80349; 80353; 81001; 84112; 85025; 85027; 86850; 86900; 86901; 88302; 88307; 94760; 94799; 99140; G0480; J0131; J0456; J1170; J1200; J1885; J2250; J2370; J2405; J2590; J3010; J3490; S0028